=== PATIENT | male | born 1985 | race Hispanic/Latino ===

== ENCOUNTER 2019-01-10 16:13 | Emergency (ER) | payer SELFPAY ==
--- NOTE | 2019-01-10 17:10 | RAD ---
XR Wrist 3 Rt View STANDARD: 01/10/2019 4:41 PM CLINICAL INDICATION: Pain, foreign body COMPARISON: None. FINDINGS: Fracture:No fracture. Arthropathy:None of significance. Incidental findings:Soft tissue defect of the ventral aspect of the wrist. No radiopaque foreign body . IMPRESSION: 1. No acute osseous abnormality. 2. Soft tissue laceration of the ventral right wrist.
[2019-01-10] MEDS ORDERED: Lidocaine 1% (PF) 30 ML VIAL ONE (17:40)
[2019-01-10] MEDS ORDERED: Adacel (T-DAP) 0.5 ML SYRINGE ONE (17:50)
== END 2019-01-10 18:00 | disposition home or self-care (01) ==
LOC: ERS 16:13
DX: S61.511A Laceration without foreign body of right wrist, initial encounter (principal); F17.210 Nicotine dependence, cigarettes, uncomplicated; Z23 Encounter for immunization; W22.8XXA Striking against or struck by other objects, initial encounter
CPT/HCPCS: 12002; 90471; 90715; J2001